=== PATIENT | female | born 1995 | race Asian ===

== ENCOUNTER 2018-05-22 16:04 | Emergency (ER) | payer OTHER ==
[2018-05-22 20:19] LABS: ABS Basophils 0 10^3/ul (0-0.2); ABS Eosinophils 0 10^3/ul (0-0.6); ABS Monocytes 0.3 10^3/ul (0-0.8); ABS Neutrophils 5.8 10^3/ul (1.5-7.7); ABS Nucleated RBC 0 10^3/ul; Eosinophil % 0.1 %; Hematocrit 39 % (35-47); Hemoglobin 12.8 g/dl (12.0-16.0); Lymphocyte % 14.4 %; Mean Corpuscular HGB Conc 33 g/dl (31-36); Mean Corpuscular Hemoglobin 31 pg (27-31); Mean Corpuscular Volume 93 fL (80-97); Mean Platelet Volume 9.2 fL (7.4-10.4); Nucleated Red Blood Cells % 0; Platelet Count 213 10^3/ul (150-450); Red Blood Count 4.21 10^6/ul (4.00-5.40); Red Cell Distribution Width 13 % (10.5-15); White Blood Count 7.1 10^3/ul (3.5-10.8)
[2018-05-22 20:33] LABS: Urine Appearance Clear; Urine Blood Negative (Negative); Urine Color Yellow; Urine Ketones 2+ (Negative); Urine Protein Negative (Negative); Urine Specific Gravity 1.009 (1.010-1.030); Urine Urobilinogen Negative (Negative)
[2018-05-22 20:36] LABS: EGFR Non-African American 118.2 (>60)
--- NOTE | 2018-05-22 21:30 | ED ---
Abdominal Pain/Female - HPI Summary HPI Summary: This patient is a 23 year old F presenting to [facility] accompanied by a male with a chief complaint of cramping upper and lower abd pain since 2 days ago. The patient rates the pain 2/10 in severity. Patient reports diarrhea, diffuse myalgia, lightheadedness, left armpit pain, bloating, and gas. Patient denies fever, vomiting, nausea, rash, or hematuria. Pt reports that she feels as though she needs to go to the bathroom but nothing comes out. Pt has not travelled recently. LKMP 2 weeks ago. No one in her apartment has been sick. PMHX none. [employer] student, senior. No FHX Diabetes, HTN. RX none. - History of Current Complaint Chief Complaint: EDAbdPain Stated Complaint: ABD PAIN/MUSCLE SORENESS/NAUSEA Time Seen by Provider: 05/22/18 21:21 Hx Obtained From: Patient Onset/Duration: Sudden Onset, Lasting Days - 2 Timing: Constant Severity Initially: Moderate Severity Currently: Moderate Pain Intensity: 4 Pain Scale Used: 0-10 Numeric Location: Diffuse Character: Cramping Associated Signs and Symptoms: Positive: Dizzy, Diarrhea. Negative: Fever, Constipation, Blood in Stool, Nausea, Vomiting Allergies/Adverse Reactions: Allergies Allergy/AdvReac Type Severity Reaction Status Date / Time No Known Allergies Allergy Verified 05/22/18 17:10 PMH/Surg Hx/FS Hx/Imm Hx Previously Healthy: Yes - No PMHx Infectious Disease History: No Infectious Disease History: Denies: Traveled Outside the [place] in Last 30 Days - Family History Known Family History: Negative: Hypertension, Diabetes - Social History Occupation: Student Review of Systems Positive: Other - diffuse myalgia. Negative: Fever Positive: Abdominal Pain, Diarrhea, Other - bloating and gas. Negative: Vomiting, Nausea Negative: hematuria Positive: Myalgia - left armpit pain Negative: Rash All Other Systems Reviewed And Are Negative: Yes Physical Exam - Summary Physical Exam Summary: Appearance: Well-appearing, Well-nourished, lying in bed comfortably Skin: Warm, dry, no obvious rash Eyes: sclera anicteric, no conjunctival pallor ENT: mucous membranes moist, pharynx appears normal Neck: Supple, nontender Respiratory: Clear to auscultation, no signs of respiratory distress Cardiovascular: Normal S1, S2. No murmurs. Normal distal pulses in tibial and radial bilaterally. Abdomen: Soft, nontender, normal active bowel sounds present Musculoskeletal: Normal, Strength/ROM Intact Neurological: A&Ox3, awake and alert, mentation is normal, speech is fluent and appropriate Psychiatric: affect is normal, does not appear anxious or depressed Triage Information Reviewed: Yes Vital Signs On Initial Exam: Initial Vitals Temp Pulse Resp BP Pulse Ox 98.5 F 80 18 103/77 100 05/22/18 17:00 05/22/18 17:00 05/22/18 17:00 05/22/18 17:00 05/22/18 17:00 Vital Signs Reviewed: Yes Diagnostics - Vital Signs Vital Signs Temp Pulse Resp BP Pulse Ox 05/22/18 19:03 98.1 F 69 16 113/77 100 05/22/18 17:00 98.5 F 80 18 103/77 100 - Laboratory Lab Results: Lab Results 05/22/18 05/22/18 05/22/18 Range/Units 20:07 20:07 20:07 WBC 7.1 (3.5-10.8) 10^3/ul RBC 4.21 (4.00-5.40) 10^6/ul Hgb 12.8 (12.0-16.0) g/dl Hct 39 (35-47) % MCV 93 (80-97) fL MCH 31 (27-31) pg MCHC 33 (31-36) g/dl RDW 13 (10.5-15) % Plt Count 213 (150-450) 10^3/ul MPV 9.2 (7.4-10.4) fL Neut % (Auto) 81.3 % Lymph % (Auto) 14.4 % [place] % (Auto) 3.9 % Eos % (Auto) 0.1 % Baso % (Auto) 0.3 % Absolute Neuts (auto) 5.8 (1.5-7.7) 10^3/ul Absolute Lymphs (auto) 1.0 (1.0-4.8) 10^3/ul Absolute Monos (auto) 0.3 (0-0.8) 10^3/ul Absolute Eos (auto) 0 (0-0.6) 10^3/ul Absolute Basos (auto) 0 (0-0.2) 10^3/ul Absolute Nucleated RBC 0 10^3/ul Nucleated RBC % 0 Sodium 134 L (135-145) mmol/L Potassium 3.6 (3.5-5.0) mmol/L Chloride 103 (101-111) mmol/L Carbon Dioxide 21 L (22-32) mmol/L Anion Gap 10 (2-11) mmol/L BUN 8 (6-24) mg/dL Creatinine 0.63 (0.51-0.95) mg/dL Est GFR ( Amer) 143.0 (>60) Est GFR (Non-Af Amer) 118.2 (>60) BUN/Creatinine Ratio 12.7 (8-20) Glucose 75 (70-100) mg/dL Lactic Acid 1.2 (0.5-2.0) mmol/L Calcium 9.4 (8.6-10.3) mg/dL Total Bilirubin 0.30 (0.2-1.0) mg/dL AST 14 (13-39) U/L ALT 6 L (7-52) U/L Alkaline Phosphatase 36 (34-104) U/L C-Reactive Protein 18.96 H (<8.01) mg/L Total Protein 7.2 (6.4-8.9) g/dL Albumin 4.5 (3.2-5.2) g/dL Globulin 2.7 (2-4) g/dL Albumin/Globulin Ratio 1.7 (1-3) Lipase < 10 L (11.0-82.0) U/L Beta HCG, Quant < 0.60 mIU/mL Urine Color Urine Appearance Urine pH (5-9) Ur Specific [place] (1.010-1.030) Urine Protein (Negative) Urine Ketones (Negative) Urine Blood (Negative) Urine Nitrate (Negative) Urine Bilirubin (Negative) Urine Urobilinogen (Negative) Ur Leukocyte Esterase (Negative) Urine Glucose (Negative) 05/22/18 Range/Units 20:20 WBC (3.5-10.8) 10^3/ul RBC (4.00-5.40) 10^6/ul Hgb (12.0-16.0) g/dl Hct (35-47) % MCV (80-97) fL MCH (27-31) pg MCHC (31-36) g/dl RDW (10.5-15) % Plt Count (150-450) 10^3/ul MPV (7.4-10.4) fL Neut % (Auto) % Lymph % (Auto) % [place] % (Auto) % Eos % (Auto) % Baso % (Auto) % Absolute Neuts (auto) (1.5-7.7) 10^3/ul Absolute Lymphs (auto) (1.0-4.8) 10^3/ul Absolute Monos (auto) (0-0.8) 10^3/ul Absolute Eos (auto) (0-0.6) 10^3/ul Absolute Basos (auto) (0-0.2) 10^3/ul Absolute Nucleated RBC 10^3/ul Nucleated RBC % Sodium (135-145) mmol/L Potassium (3.5-5.0) mmol/L Chloride (101-111) mmol/L Carbon Dioxide (22-32) mmol/L Anion Gap (2-11) mmol/L BUN (6-24) mg/dL Creatinine (0.51-0.95) mg/dL Est GFR ( Amer) (>60) Est GFR (Non-Af Amer) (>60) BUN/Creatinine Ratio (8-20) Glucose (70-100) mg/dL Lactic Acid (0.5-2.0) mmol/L Calcium (8.6-10.3) mg/dL Total Bilirubin (0.2-1.0) mg/dL AST (13-39) U/L ALT (7-52) U/L Alkaline Phosphatase (34-104) U/L C-Reactive Protein (<8.01) mg/L Total Protein (6.4-8.9) g/dL Albumin (3.2-5.2) g/dL Globulin (2-4) g/dL Albumin/Globulin Ratio (1-3) Lipase (11.0-82.0) U/L Beta HCG, Quant mIU/mL Urine Color Yellow Urine Appearance Clear Urine pH 6.0 (5-9) Ur Specific [place] 1.009 L (1.010-1.030) Urine Protein Negative (Negative) Urine Ketones 2+ A (Negative) Urine Blood Negative (Negative) Urine Nitrate Negative (Negative) Urine Bilirubin Negative (Negative) Urine Urobilinogen Negative (Negative) Ur Leukocyte Esterase Negative (Negative) Urine Glucose Negative (Negative) Result Diagrams: 05/22/18 20:07 05/22/18 20:07 Lab Statement: Any lab studies that have been ordered have been reviewed, and results considered in the medical decision making process. Abdominal Pain Fem Course/Dx - Course Course Of Treatment: This patient is a 23 year old F presenting to [facility] accompanied by a male with a chief complaint of cramping upper and lower abd pain since 2 days ago. The patient rates the pain 2/10 in severity. Patient reports diarrhea, diffuse myalgia, lightheadedness, left armpit pain, bloating, and gas. Patient denies fever, vomiting, nausea, rash, or hematuria. Test results with no significant abnormalities. In the ED course the patient was given Dicyclomine. Patient will be discharged with prescription for Dicyclomine and follow up from [facility]. The patient is agreeable with this plan. - Diagnoses Provider Diagnoses: Gastroenteritis, Acute diarrhea Discharge - Sign-Out/Discharge Documenting (check all that apply): Patient Departure - discharge - Discharge Plan Condition: Good Disposition: HOME Prescriptions: Dicyclomine CAP* [Bentyl CAP*] 10 mg PO TID PRN #12 cap PRN Reason: Pain - Abdominal Patient Education Materials: Gastroenteritis (ED), Acute Diarrhea (ED) Referrals: [facility] - Kris CLAYTON [Primary Care Provider] - - Billing Disposition and Condition Condition: GOOD Disposition: Home - Attestation Statements Document Initiated by Eileen: Yes Documenting Scribe: Salas Lozada Provider For Whom Eileen is Documenting (Include Credential): Primitivo Ambrose MD Scribe Attestation: Salas Cardona, eileened for Primitivo Ambrose MD on 05/23/18 at 0347. Scribe Documentation Reviewed: Yes Provider Attestation: The documentation as recorded by the Salas reed accurately reflects the service I personally performed and the decisions made by me, Primitivo Ambrose MD Status of Scribe Document: Viewed
[2018-05-22] MEDS ORDERED: Dicyclomine CAP* 10 MG PO ONE (21:35)
[2018-05-22 21:44] VITALS: BP 106/72
== END 2018-05-22 21:43 | disposition home or self-care (01) ==
LOC: ED 16:04
DX: K52.9 Noninfective gastroenteritis and colitis, unspecified (principal); R42 Dizziness and giddiness; R19.7 Diarrhea, unspecified; M79.602 Pain in left arm
CPT/HCPCS: 36415; 80053; 81003; 83605; 83690; 84702; 85025; 86140; 99282; A9270-GY